=== PATIENT | male | born 1985 | race Caucasian/White ===

== ENCOUNTER 2016-03-31 11:10 | Emergency (ER) | payer OTHER ==
[2016-03-31 11:19] VITALS: RESP 18
[2016-03-31] MEDS ORDERED: SODIUM CHLORIDE 0.9% 1,000 ML IV STA (11:25)
[2016-03-31 11:59] LABS: Basophils % (A) 1 %; CH 30.1; CHCM 34.7; Eosinophils # (A) 0.2 k/uL (0-0.7); Eosinophils % (A) 3 %; HCT 44.9 % (39.0-53.0); HDW 2.62; HGB 15.3 gm/dL (13.0-17.5); Luc # (Auto) 0.08; Luc % (Auto) 1; Lymphocytes # (A) 2.7 k/uL (1.0-4.8); Lymphocytes % (A) 34 %; MCH 29.6 pg (25.0-35.0); MCV 87.1 fL (80.0-100.0); Mean Platelet Volume 7.6; Monocytes # (A) 0.3 k/uL (0-1.0); Monocytes % (A) 4 %; Neutrophils # (A) 4.6 k/uL (1.3-7.7); Neutrophils % (A) 58 %; RBC 5.16 m/uL (4.30-5.90); RDW 12.3 % (11.5-15.5); WBC 7.9 k/uL (3.8-10.6); WBC (Perox) 8.22
--- NOTE | 2016-03-31 12:00 | ED ---
Abdominal Pain HPI - General Chief Complaint: Abdominal Pain Stated Complaint: ABDOMINAL PAIN RT SIDE, VERY TIRED Time Seen by Provider: 03/31/16 11:25 Source: patient, RN notes reviewed Mode of arrival: ambulatory Limitations: no limitations - History of Present Illness Initial Comments: 30-year-old male presents emergency Department chief complaints of fatigue, abdominal pain. Patient states he has hepatitis C is concerned that he may be having a flareup. Patient states he has been admitted in the past for jaundice , elevated liver enzymes. Patient states this was a few years ago states that he was admitted for one week and discharge. He has not seat treatment after. He was told by the disposal plant operator that they would recommend that he waited one year. Patient states that now too. Patient denies any dysuria hematuria. Denies any history of mono. Denies any chest pain or shortness breath. Patient states that he noticed that he cannot smoke a cigarette without getting sick. Patient offers no other complaints.. - Related Data Home Medications Medication Instructions Recorded Confirmed No Known Home Medications [No 03/31/16 03/31/16 Known Home Medications] Allergies Allergy/AdvReac Type Severity Reaction Status Date / Time acetaminophen [From Tylenol] AdvReac "does not Verified 03/31/16 11:25 take" Review of Systems ROS Statement: Those systems with pertinent positive or pertinent negative responses have been documented in the HPI. ROS Other: All systems not noted in ROS Statement are negative. Past Medical History Past Medical History: Liver Disease, Musculoskeletal Disorder Additional Past Medical History / Comment(s): hepatitis c. chronic back pain with ruptured disc, cutting in the past History of Any Multi-Drug Resistant Organisms: None Reported Past Surgical History: No Surgical Hx Reported Additional Past Surgical History / Comment(s): Colonoscopy/EGD Past Anesthesia/Blood Transfusion Reactions: No Reported Reaction Past Psychological History: ADD/ADHD Smoking Status: Current every day smoker Past Alcohol Use History: None Reported Additional Past Alcohol Use History / Comment(s): Patient is a smoker of 10-15 cigarettes per day for 7 years. He smokes one joint of marijuana daily and he has a medical marijuana card. He denies any street drug or IV drug use. He is worked as a heavy equipment mechanic in the past. He is trying to get disability papers signed by Dr. Turner. Past Drug Use History: None Reported - Past Family History Father Additional Family Medical History / Comment(s): Father is alive at age 62 with history of Crohn's. Mother Additional Family Medical History / Comment(s): Mother is alive at age 54 with history of fibromyalgia and rheumatoid arthritis. Patient has 2 brothers that are currently living in [place] and 2 sisters. He has 3 children ages 7 year daughter, 4-year-old son, son. General Exam Limitations: no limitations General appearance: alert, in no apparent distress Neck exam: Present: normal inspection, full ROM. Absent: tenderness, meningismus, lymphadenopathy Respiratory exam: Present: normal lung sounds bilaterally. Absent: respiratory distress, wheezes, rales, rhonchi, stridor Cardiovascular Exam: Present: regular rate, normal rhythm, normal heart sounds. Absent: systolic murmur, diastolic murmur, rubs, gallop, clicks GI/Abdominal exam: Present: soft, tenderness (Moderate right upper quadrant tenderness), normal bowel sounds. Absent: distended, guarding, rebound, rigid Back exam: Absent: CVA tenderness (R), CVA tenderness (L) Psychiatric exam: Present: normal affect, normal mood Skin exam: Present: warm, dry, intact, normal color. Absent: rash Course Vital Signs 03/31/16 11:15 Temperature 98.7 F Pulse Rate 67 Respiratory 18 Rate Blood Pressure 123/61 O2 Sat by Pulse 100 Oximetry Medical Decision Making - Medical Decision Making 30-year-old male present emergency department for fatigue just generalized not feeling well. Patient's lab work essentially unremarkable. Patient is concerned about his hepatitis C. I did strongly advise him that he needs seek treatment in which she states she'll follow-up with Dr. Linares. Patient will be discharged advised to quit smoking counseled in detail greater than 5 minutes for smoking sensation. Patient will take multivitamin return if symptoms worsen. - Lab Data Result diagrams: 03/31/16 11:47 03/31/16 11:47 Lab Results 03/31/16 03/31/16 03/31/16 Range/Units 11:47 11:47 11:47 WBC 7.9 (3.8-10.6) k/uL RBC 5.16 (4.30-5.90) m/uL Hgb 15.3 (13.0-17.5) gm/dL Hct 44.9 (39.0-53.0) % MCV 87.1 (80.0-100.0) fL MCH 29.6 (25.0-35.0) pg MCHC 34.0 (31.0-37.0) g/dL RDW 12.3 (11.5-15.5) % Plt Count 146 L (150-450) k/uL Neutrophils % 58 % Lymphocytes % 34 % Monocytes % 4 % Eosinophils % 3 % Basophils % 1 % Neutrophils # 4.6 (1.3-7.7) k/uL Lymphocytes # 2.7 (1.0-4.8) k/uL Monocytes # 0.3 (0-1.0) k/uL Eosinophils # 0.2 (0-0.7) k/uL Basophils # 0.0 (0-0.2) k/uL Sodium 147 H (137-145) mmol/L Potassium 4.3 (3.5-5.1) mmol/L Chloride 108 H (98-107) mmol/L Carbon Dioxide 27 (22-30) mmol/L Anion Gap 12 mmol/L BUN 14 (9-20) mg/dL Creatinine 0.73 (0.66-1.25) mg/dL Est GFR (MDRD) Af Amer >60 (>60 ml/min/1.73 sqM) Est GFR (MDRD) Non-Af >60 (>60 ml/min/1.73 sqM) Glucose 89 (74-99) mg/dL Calcium 9.6 (8.4-10.2) mg/dL Total Bilirubin 1.3 (0.2-1.3) mg/dL AST 24 (17-59) U/L ALT 38 (21-72) U/L Alkaline Phosphatase 74 (38-126) U/L Ammonia (<30) umol/L Total Protein 7.8 (6.3-8.2) g/dL Albumin 4.7 (3.5-5.0) g/dL Amylase 78 (30-110) U/L Lipase 65 (23-300) U/L Heterophile Antibody Negative (Negative) 03/31/16 Range/Units 11:47 WBC (3.8-10.6) k/uL RBC (4.30-5.90) m/uL Hgb (13.0-17.5) gm/dL Hct (39.0-53.0) % MCV (80.0-100.0) fL MCH (25.0-35.0) pg MCHC (31.0-37.0) g/dL RDW (11.5-15.5) % Plt Count (150-450) k/uL Neutrophils % % Lymphocytes % % Monocytes % % Eosinophils % % Basophils % % Neutrophils # (1.3-7.7) k/uL Lymphocytes # (1.0-4.8) k/uL Monocytes # (0-1.0) k/uL Eosinophils # (0-0.7) k/uL Basophils # (0-0.2) k/uL Sodium (137-145) mmol/L Potassium (3.5-5.1) mmol/L Chloride (98-107) mmol/L Carbon Dioxide (22-30) mmol/L Anion Gap mmol/L BUN (9-20) mg/dL Creatinine (0.66-1.25) mg/dL Est GFR (MDRD) Af Amer (>60 ml/min/1.73 sqM) Est GFR (MDRD) Non-Af (>60 ml/min/1.73 sqM) Glucose (74-99) mg/dL Calcium (8.4-10.2) mg/dL Total Bilirubin (0.2-1.3) mg/dL AST (17-59) U/L ALT (21-72) U/L Alkaline Phosphatase (38-126) U/L Ammonia 19 (<30) umol/L Total Protein (6.3-8.2) g/dL Albumin (3.5-5.0) g/dL Amylase (30-110) U/L Lipase (23-300) U/L Heterophile Antibody (Negative) Disposition Clinical Impression: Fatigue, Abdominal pain Disposition: HOME SELF-CARE Condition: Stable Instructions: Fatigue (ED) Additional Instructions: Please return to the Emergency Department if symptoms worsen or any other concerns. Time of Disposition: 13:13
[2016-03-31 12:14] LABS: ALT 38 U/L (21-72); AST 24 U/L (17-59); Alkaline Phosphatase 74 U/L (38-126); Amylase 78 U/L (30-110); Anion Gap 12 mmol/L; Blood Urea Nitrogen 14 mg/dL (9-20); Calcium 9.6 mg/dL (8.4-10.2); Carbon Dioxide 27 mmol/L (22-30); Chloride 108 mmol/L (98-107); Glucose 89 mg/dL (74-99); Non-African American GFR(MDRD) >60 (>60 ml/min/1.73 sqM); Potassium 4.3 mmol/L (3.5-5.1); Sodium 147 mmol/L (137-145); Total Bilirubin 1.3 mg/dL (0.2-1.3); Total Protein 7.8 g/dL (6.3-8.2)
--- NOTE | 2016-03-31 12:22 | XR ---
EXAMINATION TYPE: XR KUB DATE OF EXAM: 03/31/2016 12:18 PM COMPARISON: NONE HISTORY: Pain TECHNIQUE: Single supine KUB image of the abdomen is obtained FINDINGS: Small bowel demonstrates no evidence for dilatation or air fluid levels. Gas and fecal material is seen in non-distended colon. No convincing evidence for pneumoperitoneum. No unusual calcifications. The lung bases are clear. The osseous structures are intact. IMPRESSION: 1. Overall nonobstructive bowel gas pattern.
[2016-03-31 13:25] VITALS: BP 113/51; PULSE 52; TEMP 98.9
[2016-03-31 13:26] LABS: Appearance,Urine Clear (Clear); Bilirubin,Urine Negative (Negative); Glucose,Urine (UA) Negative (Negative); Ketones,Urine Negative (Negative); Leukocyte Esterase,Urine Negative (Negative); Nitrite,Urine Negative (Negative); Protein,Urine Trace (Negative); Specific Gravity,Urine 1.021 (1.001-1.035); UA Billing (MACRO vs. MICRO) CHEM; Urobilinogen,Urine <2.0 mg/dL (<2.0)
== END 2016-03-31 13:25 | disposition home or self-care (01) ==
LOC: EC 11:10
DX: R10.11 Right upper quadrant pain (principal); R53.83 Other fatigue; F17.210 Nicotine dependence, cigarettes, uncomplicated; Z87.19 Personal history of other diseases of the digestive system; Z86.19 Personal history of other infectious and parasitic diseases; Z83.79 Family history of other diseases of the digestive system; Z88.6 Allergy status to analgesic agent
CPT/HCPCS: 36415; 74000; 80053; 81003; 82140; 82150; 83690; 85025; 86308; 96360; 99284

== ENCOUNTER 2016-08-05 14:48 | Emergency (ER) | payer OTHER ==
[2016-08-05 14:55] VITALS: BP 113/70; PULSE 62; RESP 16; TEMP 97.6
--- NOTE | 2016-08-05 15:45 | ED ---
General Adult HPI - General Chief complaint: Abdominal Pain Stated complaint: Abd Pain Time Seen by Provider: 08/05/16 15:24 Source: patient, RN notes reviewed, old records reviewed Mode of arrival: ambulatory Limitations: no limitations - History of Present Illness Initial comments: Chief complaint and history of present illness a 31-year-old male to complaint of right upper quadrant pain. Patient reports he had a friend moving a heavy stone restart have discomfort that Progressively worse. Patient reports she's had this before. - Related Data Home Medications Medication Instructions Recorded Confirmed No Known Home Medications [No 03/31/16 08/05/16 Known Home Medications] Allergies Allergy/AdvReac Type Severity Reaction Status Date / Time acetaminophen [From Tylenol] AdvReac "does not Verified 08/05/16 14:55 take" Review of Systems ROS Statement: Those systems with pertinent positive or pertinent negative responses have been documented in the HPI. reviewed his review of systems. Patient's denying any headache or visual acuity changes no chest pain with deep breathing does cause discomfort to the right upper quadrant. States the pains under the right rib cage. Is able to push on his ribs without much discomfort. Pain does not radiate to the back at this time though he has had disc disease and L2-L3 in the past. No neuro deficits all systems are reviewed Past medical problems significant for alcohol abuse IV drug abuse mental health issues. Hepatitis C positive. Patient reports twice his turn icteric first time he did not seek any medical advice. He did have an appointment to follow- up with otr company truck driver but missed the appointment. Strongly encouraged to follow up as soon as possible. Other medical problems include ADHD ADD. ALLERGIES to acetaminophen which he does not take because of the liver problems. ROS Other: All systems not noted in ROS Statement are negative. Past Medical History Past Medical History: Liver Disease, Musculoskeletal Disorder Additional Past Medical History / Comment(s): hepatitis c. chronic back pain with ruptured disc, cutting in the past History of Any Multi-Drug Resistant Organisms: None Reported Past Surgical History: No Surgical Hx Reported Additional Past Surgical History / Comment(s): Colonoscopy/EGD Past Anesthesia/Blood Transfusion Reactions: No Reported Reaction Past Psychological History: ADD/ADHD Smoking Status: Current every day smoker Past Alcohol Use History: None Reported Additional Past Alcohol Use History / Comment(s): Patient is a smoker of 10-15 cigarettes per day for 7 years. He smokes one joint of marijuana daily and he has a medical marijuana card. He denies any street drug or IV drug use. He is worked as a auto motor mechanic in the past. He is trying to get disability papers signed by Dr. Turner. Past Drug Use History: None Reported - Past Family History Father Additional Family Medical History / Comment(s): Father is alive at age 62 with history of Crohn's. Mother Additional Family Medical History / Comment(s): Mother is alive at age 54 with history of fibromyalgia and rheumatoid arthritis. Patient has 2 brothers that are currently living in [place] and 2 sisters. He has 3 children ages 7 year daughter, 4-year-old son, son. General Exam - General Exam Comments Initial Comments: General: The patient is awake and alert, complaining of pain up under the right rib cage. Vital signs temp 97.6 pulse 62 or 3 rate 16 pulse ox 90% room air blood pressure 113/70. Eye: Pupils are equal, round and reactive to light, extra-ocular movements are intact ; there is normal conjunctiva bilaterally. No signs of icterus. Ears, nose, mouth and throat: There are moist mucous membranes and no oral lesions. Neck: The neck is supple, there is no tenderness , no meningeal irritation, no anterior cervical lymphadenopathy. Cardiovascular: There is a regular rate and rhythm. No murmur, rub or gallop is appreciated. Respiratory: Lungs are clear to auscultation, respirations are non-labored, breath sounds are equal. No wheezes, stridor, rales, or rhonchi. Gastrointestinal: palpation of the rib cage anteriorly in the right side some cause discomfort. Palpation over the liver edge nontender at this time the patient reports she has spasms of pain in the area. Normal active bowel sounds. Back: There is no tenderness to palpation in the midline. There is no obvious deformity. No rashes noted. Musculoskeletal: Normal ROM, no tenderness, There is no pedal edema. There is no calf tenderness or swelling. Neurological: no complaint of or any evidence of a neuro deficits. Skin: Skin is warm and dry and no rashes or lesions are noted. Psychiatric: history depression. Limitations: no limitations Course Vital Signs 08/05/16 14:51 Temperature 97.6 F Pulse Rate 62 Respiratory 16 Rate Blood Pressure 113/70 O2 Sat by Pulse 98 Oximetry Medical Decision Making - Medical Decision Making Patient left before being fully evaluated her lab work was done. He just walked out. No explanation given. Disposition Clinical Impression: Left against medical advice Disposition: Left Against Medical Advice Condition: Undetermined Referrals: Yaneth Turner MD [Primary Care Provider] - 1-2 days Time of Disposition: 17:09
== END 2016-08-05 16:45 | disposition left against medical advice (07) ==
LOC: EC 14:48
DX: R10.11 Right upper quadrant pain (principal); F17.210 Nicotine dependence, cigarettes, uncomplicated; Z88.6 Allergy status to analgesic agent
CPT/HCPCS: 99284

== ENCOUNTER → 2016-10-02 | Outpatient (CLI) | payer OTHER ==
--- NOTE | 2016-10-02 15:39 | XR ---
Limited cervical spine HISTORY: Neck pain 3 views of the cervical spine No comparisons Cervical vertebral bodies show preserved height, alignment, and bone mineralization. Disc spaces and prevertebral soft tissues are normal. Odontoid view is limited. IMPRESSION: No acute abnormality.
--- NOTE | 2016-10-02 15:42 | XR ---
Lumbosacral spine HISTORY: Pain, R 52 6 views of the lumbosacral spine Correlation to prior exam 09/05/2012 There is a spinal curvature, convex left centered at approximately L3. L5 is sacralized. Loss of disc height L4-5 and L5-S1, there is associated spondylosis. Lumbar vertebral bodies show preserved heigh t and bone mineralization. IMPRESSION: Spinal curvature. Degenerative disc disease. Stable exam.
--- NOTE | 2016-10-02 15:45 | XR ---
Thoracic spine HISTORY: Chronic back 2 views of the thoracic spine Correlation to lumbar spine same date Thoracic vertebral bodies show preserved height and bone mineralization. There is a spinal curvature present, compensatory curve noted in the lower thoracic spine. There is multilevel spondylosis. Disc spaces are maintained. IMPRESSION: Spinal curvature, degenerative disc disease.
== END ==
LOC: RADXRMAIN 11:14
PROVIDERS: ATTEND Internal Medicine
DX: M51.37 Other intervertebral disc degeneration, lumbosacral region (principal); M43.9 Deforming dorsopathy, unspecified; M51.34 Other intervertebral disc degeneration, thoracic region; R52 Pain, unspecified
CPT/HCPCS: 72040; 72070; 72110

== ENCOUNTER 2017-01-26 15:16 | Emergency (ER) | payer OTHER ==
--- NOTE | 2017-01-26 16:39 | ED ---
General Adult HPI - General Chief complaint: Fall Stated complaint: abdominal & back pain Time Seen by Provider: 01/26/17 16:06 Source: patient Mode of arrival: ambulatory Limitations: no limitations - History of Present Illness Initial comments: Patient is a 31-year-old male who presents with a chief complaint of right- sided back and hip pain. The patient states that he had an injury that happened on the . He was trying to walk through a pile of leaves and did not see that there was a chunk of ice and dirt underneath. He states that he tried to kick the leaves and his foot came to an abrupt stop and he felt a pop in his right sided lower back. Patient states that his pain is a throbbing type pain. It is aggravated by flexing and extending at the hip. It is alleviated by rest. Timing is constant. Patient states that he does have a history of similar back problems. The patient states that he is an avid runner and he is unable to run currently. Patient denies any caudal symptoms. He denies any bowel or bladder incontinence. The patient is able to ambulate without assistance - Related Data Previous Rx's Medication Instructions Recorded Ibuprofen [Motrin] 800 mg PO Q8HR #20 tab 01/26/17 Lidocaine 5% Patch [Lidoderm 5% 1 patch TOPICAL DAILY #20 patch 01/26/17 Patch] Allergies Allergy/AdvReac Type Severity Reaction Status Date / Time acetaminophen [From Tylenol] AdvReac "does not Verified 01/26/17 16:08 take" Review of Systems ROS Statement: Those systems with pertinent positive or pertinent negative responses have been documented in the HPI. ROS Other: All systems not noted in ROS Statement are negative. Constitutional: Denies: fever Eyes: Denies: vision change ENT: Denies: ear pain, throat pain Respiratory: Denies: cough Cardiovascular: Denies: chest pain Endocrine: Denies: fatigue Gastrointestinal: Denies: abdominal pain, nausea, vomiting Genitourinary: Denies: dysuria Musculoskeletal: Reports: back pain Skin: Denies: rash, lesions Neurological: Denies: headache Past Medical History Past Medical History: Liver Disease, Musculoskeletal Disorder Additional Past Medical History / Comment(s): hepatitis c. chronic back pain with ruptured disc, cutting in the past History of Any Multi-Drug Resistant Organisms: None Reported Past Surgical History: No Surgical Hx Reported Additional Past Surgical History / Comment(s): Colonoscopy/EGD Past Anesthesia/Blood Transfusion Reactions: No Reported Reaction Past Psychological History: ADD/ADHD Smoking Status: Current every day smoker Past Alcohol Use History: None Reported Past Drug Use History: None Reported - Past Family History Father Additional Family Medical History / Comment(s): Father is alive at age 62 with history of Crohn's. Mother Additional Family Medical History / Comment(s): Mother is alive at age 54 with history of fibromyalgia and rheumatoid arthritis. Patient has 2 brothers that are currently living in [place] and 2 sisters. He has 3 children ages 7 year daughter, 4-year-old son, son. General Exam Limitations: no limitations General appearance: alert, in no apparent distress Head exam: Present: atraumatic, normocephalic Eye exam: Present: normal appearance ENT exam: Present: normal exam Neck exam: Present: normal inspection Respiratory exam: Present: normal lung sounds bilaterally Cardiovascular Exam: Present: regular rate, normal rhythm GI/Abdominal exam: Present: soft. Absent: distended, tenderness Rectal exam: Present: deferred Extremities exam: Present: other (Patient has pain in his back with extension of the right hip. Pain is improved with flexion) Back exam: Present: muscle spasm, paraspinal tenderness. Absent: vertebral tenderness Neurological exam: Present: alert, oriented X3, CN II-XII intact Psychiatric exam: Present: normal affect, normal mood Skin exam: Present: warm, dry, intact Course Vital Signs 01/26/17 15:29 Temperature 98.4 F Pulse Rate 51 L Respiratory 16 Rate Blood Pressure 113/59 O2 Sat by Pulse 98 Oximetry Medical Decision Making - Medical Decision Making Patient presents with a chief complaint of a back injury secondary to kicking a chunk of ice and subsequently falling. Patient does not have any caudal symptoms present. He is able to ambulate on his own. The patient will have an x-ray of the right hip and lumbar spine. Patient was offered pain medication though he declines at this time. X-ray evaluation of the pelvis, right hip, and lumbar spine show no acute fractures or malalignments. Patient was written a prescription for lidocaine patches, and Motrin 800. He is given a work note to be cleared by PCP. At this time, patient is stable for discharge Disposition Clinical Impression: Fall, Back pain Disposition: HOME SELF-CARE Condition: Good Instructions: Low Back Strain (ED) Prescriptions: Ibuprofen [Motrin] 800 mg PO Q8HR #20 tab Lidocaine 5% Patch [Lidoderm 5% Patch] 1 patch TOPICAL DAILY #20 patch Referrals: Yaneth Turner MD [Primary Care Provider] - 1-2 days
--- NOTE | 2017-01-26 16:54 | XR ---
EXAMINATION TYPE: XR Hip RT and AP Pelvis DATE OF EXAM: 01/26/2017 COMPARISON: NONE HISTORY: Right hip and back pain after fall 3 days ago TECHNIQUE: A single AP view of the pelvis is obtained. Two views of the right hip are obtained. FINDINGS: There is no acute fracture/dislocation evident in the pelvis. The hip and sacroiliac join ts appear symmetric and unremarkable. The overlying soft tissue appears unremarkable. Probable phleb oliths are located within the low pelvis inferior to the ischial spines. Two views of right hip show no acute fracture or dislocation. No focal lytic or sclerotic lesion see n in the proximal right femur. The overlying soft tissue is unremarkable. IMPRESSION: There is no acute fracture or dislocation in the pelvis or right hip.
--- NOTE | 2017-01-26 16:58 | XR ---
EXAMINATION TYPE: XR lumbar spine 2 or 3V DATE OF EXAM: 01/26/2017 CLINICAL HISTORY: Low back pain after a fall TECHNIQUE: Frontal, lateral, and oblique images of the lumbar spine are obtained. COMPARISON: None FINDINGS: There is sacralization of the L5 vertebral body. The lumbar spine shows satisfactory align ment without evidence of acute fracture or dislocation. Vertebral body heights and disk space heights are within normal limits. Mild degenerative change is seen at the L4-L5 . There is mild downsloping of the T12 superior endplate, likely positional although correlation with point tenderness is recomme nded to exclude subtle compression deformity. The overlying soft tissue appears unremarkable. IMPRESSION: 1. Mild downsloping of the T12 superior endplate, likely positional. Correlation with point tendernes s is recommended to exclude subtle compression deformity. 2. No malalignment of the lumbar spine.
[2017-01-26 17:47] VITALS: BP 170/70; PULSE 78; RESP 18; TEMP 97.8
== END 2017-01-26 17:46 | disposition home or self-care (01) ==
LOC: EC 15:16
DX: M62.830 Muscle spasm of back (principal); M25.551 Pain in right hip; F17.200 Nicotine dependence, unspecified, uncomplicated; Z88.8 Allergy status to other drugs, medicaments and biological substances; Z82.61 Family history of arthritis; Z82.69 Family history of other diseases of the musculoskeletal system and connective tissue; W18.09XA Striking against other object with subsequent fall, initial encounter; Y93.89 Activity, other specified; Y92.69 Other specified industrial and construction area as the place of occurrence of the external cause; Y99.0 Civilian activity done for income or pay
CPT/HCPCS: 72100; 73502; 99283

== ENCOUNTER 2017-08-12 00:26 | Emergency (ER) | payer OTHER ==
[2017-08-12] MEDS ORDERED: BENZONATATE 100 MG CAP PO STA (00:53)
[2017-08-12] MEDS ORDERED: predniSONE 50 MG TAB PO STA (00:53)
--- NOTE | 2017-08-12 02:00 | XR ---
EXAM: XR Chest, 2 Views CLINICAL HISTORY: ITS.REASON XR Reason: Pain TECHNIQUE: Frontal and lateral views of the chest. COMPARISON: No relevant prior studies available. FINDINGS: Lungs: Unremarkable. No consolidation. Pleural space: Unremarkable. No pneumothorax. Heart: Unremarkable. No cardiomegaly. Mediastinum: Unremarkable. Bones/joints: Unremarkable. IMPRESSION: Normal chest x-rays.
--- NOTE | 2017-08-12 02:37 | ED ---
URI HPI - General Chief Complaint: Upper Respiratory Infection Stated Complaint: cough, chest discomfort Time Seen by Provider: 08/12/17 00:48 Source: patient Mode of arrival: ambulatory Limitations: no limitations - History of Present Illness Initial Comments: 32-year-old male patient presents to the emergency department today for complaints of cough. Patient states that he developed upper respiratory symptoms about a week ago. States that the symptoms included sore throat, nasal congestion, and cough. States that the nasal congestion and sore throat have resolved with the cough has remained. States he is coughing up "[place] green " sputum. Patient states that when he coughs his chest does hurt. He denies any pain in the chest with deep breathing or at rest. Denies any fevers or chills. Denies any shortness of breath. Patient states he does smoke cigarettes. Patient states he did take Mucinex prior to coming in, states that has not helped. Patient denies any recent rash, abdominal pain, nausea, vomiting , diarrhea, constipation, back pain, numbness, tingling, dizziness, weakness, hematuria, dysuria, urinary urgency, urinary frequency, headache, visual changes , or any other complaints. - Related Data Previous Rx's Medication Instructions Recorded Promethazine 6.25MG/5Ml [Phenergan 5 ml PO Q6H PRN #100 ml 08/12/17 Syrup] predniSONE 50 mg PO DAILY #5 tablet 08/12/17 Allergies Allergy/AdvReac Type Severity Reaction Status Date / Time acetaminophen [From Tylenol] AdvReac "does not Verified 01/26/17 16:08 take" Review of Systems ROS Statement: Those systems with pertinent positive or pertinent negative responses have been documented in the HPI. ROS Other: All systems not noted in ROS Statement are negative. Past Medical History Past Medical History: Liver Disease, Musculoskeletal Disorder Additional Past Medical History / Comment(s): hepatitis c. chronic back pain with ruptured disc, cutting in the past History of Any Multi-Drug Resistant Organisms: None Reported Past Surgical History: No Surgical Hx Reported Additional Past Surgical History / Comment(s): Colonoscopy/EGD Past Anesthesia/Blood Transfusion Reactions: No Reported Reaction Past Psychological History: ADD/ADHD Smoking Status: Current every day smoker Past Alcohol Use History: None Reported Past Drug Use History: None Reported - Past Family History Father Additional Family Medical History / Comment(s): Father is alive at age 62 with history of Crohn's. Mother Additional Family Medical History / Comment(s): Mother is alive at age 54 with history of fibromyalgia and rheumatoid arthritis. Patient has 2 brothers that are currently living in [place] and 2 sisters. He has 3 children ages 7 year daughter, 4-year-old son, son. General Exam Limitations: no limitations General appearance: alert, in no apparent distress, other (This is a well- developed, well-nourished adult male patient in no acute distress. Vital signs upon presentation are temperature 98.2F, pulse 64, respirations 20, blood pressure 112/53, pulse ox 100% on room air.) Eye exam: Present: normal appearance, PERRL, EOMI. Absent: scleral icterus, conjunctival injection, periorbital swelling ENT exam: Present: normal exam, normal oropharynx, mucous membranes moist, TM's normal bilaterally Neck exam: Present: normal inspection. Absent: tenderness, meningismus, lymphadenopathy Respiratory exam: Present: normal lung sounds bilaterally, other (Patient is in no respiratory distress. Lungs are clear to auscultation with good air movement. Congested cough noted throughout exam.). Absent: respiratory distress, wheezes, rales, rhonchi, stridor, chest wall tenderness Cardiovascular Exam: Present: regular rate, normal rhythm, normal heart sounds. Absent: systolic murmur, diastolic murmur, rubs, gallop, clicks GI/Abdominal exam: Present: soft, normal bowel sounds. Absent: distended, tenderness, guarding, rebound, rigid Neurological exam: Present: alert, oriented X3, CN II-XII intact Psychiatric exam: Present: normal affect, normal mood Skin exam: Present: warm, dry, intact, normal color. Absent: rash Course Vital Signs 08/12/17 08/12/17 00:34 02:58 Temperature 98.0 F 97.8 F Pulse Rate 64 52 L Respiratory 20 18 Rate Blood Pressure 112/53 108/52 O2 Sat by Pulse 100 97 Oximetry Medical Decision Making - Medical Decision Making 32-year-old male patient presented to the emergency department today for evaluation of cough. Physical examination was unremarkable. Lungs are clear to auscultation with good air movement. Chest x-ray showed no acute cardiopulmonary process. Patient did have a viral upper respiratory infection, it is felt that he has progressed to acute bronchitis. Patient be treated with Phenergan syrup and prednisone. He is instructed to stop smoking. He is instructed to follow-up with his primary care physician for recheck in 1-2 days. Return parameters discussed in detail. He verbalizes understanding and agrees with this plan. - Radiology Data Radiology results: report reviewed, image reviewed Two-view x-ray of the chest was obtained. Report was reviewed in its entirety. Impression by Dr. Presley shows normal chest x-rays. Disposition Clinical Impression: Viral upper respiratory illness, Acute bronchitis Disposition: HOME SELF-CARE Condition: Good Instructions: Upper Respiratory Infection (ED), Acute Bronchitis (ED) Additional Instructions: Complete medications as directed. Follow-up with your primary care physician for recheck in 1-2 days. Return here immediately for any new, worsening, or concerning symptoms. Prescriptions: predniSONE 50 mg PO DAILY #5 tablet Promethazine 6.25MG/5Ml [Phenergan Syrup] 5 ml PO Q6H PRN #100 ml PRN Reason: Cough Is patient prescribed a controlled substance at d/c from ED?: No Referrals: None,Stated [Primary Care Provider] - 1-2 days Time of Disposition: 02:36
[2017-08-12 03:01] VITALS: BP 108/52; PULSE 52; RESP 18; TEMP 97.8
== END 2017-08-12 03:00 | disposition home or self-care (01) ==
LOC: EC 00:26
DX: J20.9 Acute bronchitis, unspecified (principal); J06.9 Acute upper respiratory infection, unspecified; F17.210 Nicotine dependence, cigarettes, uncomplicated; Z88.6 Allergy status to analgesic agent
CPT/HCPCS: 71046; 99283; J7512

== ENCOUNTER 2017-08-16 21:51 | Emergency (ER) | payer OTHER ==
[2017-08-16 22:10] VITALS: TEMP 98.4
[2017-08-16] MEDS ORDERED: IPRATROPIUM-ALBUTEROL 3 ML NEB INHALATION STA (22:54)
--- NOTE | 2017-08-17 00:06 | ED ---
General Adult HPI - General Chief complaint: Upper Respiratory Infection Stated complaint: SOB/Cough Time Seen by Provider: 08/16/17 22:12 Source: patient Mode of arrival: ambulatory Limitations: no limitations - History of Present Illness Initial comments: 32-year-old male patient presented to the emergency department today with complaints of continued cough. Patient states that he has been sick for the last couple of weeks with a harsh cough and some mild shortness of breath. Patient states it all started with upper respiratory symptoms including sore throat and nasal congestion. Patient states that he was seen here a few days ago was given steroids and a cough medication. Patient states soon as a cough medication wore off his cough and return. States the steroids are not helping. Denies any sputum production or hemoptysis. Denies any chest pain. Denies any fevers or chills with this. Patient states he is a smoker rate has decreased a lot in the last couple of weeks. Denies any history of lung conditions. Patient denies any recent rash, abdominal pain, nausea, vomiting, diarrhea, constipation, back pain, numbness, tingling, dizziness, weakness, hematuria, dysuria, urinary urgency, urinary frequency, headache, visual changes , or any other complaints. - Related Data Previous Rx's Medication Instructions Recorded Albuterol Sulfate [Proair Hfa] 1 - 2 puff INHALATION Q6HR PRN #1 08/17/17 inhaler Azithromycin [Zithromax Z-pack] 0 mg PO DIRECTED #6 tab 08/17/17 Promethazine 6.25MG/5Ml [Phenergan 5 ml PO Q6H #100 ml 08/17/17 Syrup] Allergies Allergy/AdvReac Type Severity Reaction Status Date / Time acetaminophen [From Tylenol] AdvReac "does not Verified 08/16/17 22:30 take" Review of Systems ROS Statement: Those systems with pertinent positive or pertinent negative responses have been documented in the HPI. ROS Other: All systems not noted in ROS Statement are negative. Past Medical History Past Medical History: Liver Disease, Musculoskeletal Disorder Additional Past Medical History / Comment(s): hepatitis c. chronic back pain with ruptured disc, cutting in the past History of Any Multi-Drug Resistant Organisms: None Reported Past Surgical History: No Surgical Hx Reported Additional Past Surgical History / Comment(s): Colonoscopy/EGD Past Anesthesia/Blood Transfusion Reactions: No Reported Reaction Past Psychological History: ADD/ADHD Smoking Status: Current every day smoker Past Alcohol Use History: None Reported Past Drug Use History: None Reported - Past Family History Father Additional Family Medical History / Comment(s): Father is alive at age 62 with history of Crohn's. Mother Additional Family Medical History / Comment(s): Mother is alive at age 54 with history of fibromyalgia and rheumatoid arthritis. Patient has 2 brothers that are currently living in [place] and 2 sisters. He has 3 children ages 7 year daughter, 4-year-old son, son. General Exam Limitations: no limitations General appearance: alert, in no apparent distress, other (This is a well- developed, well-nourished adult male patient in no acute distress. Vital signs upon presentation are temperature 98.4F, pulse 64, respirations 20, blood pressure 112/63, pulse ox 99% on room air.) Eye exam: Present: normal appearance, PERRL, EOMI. Absent: scleral icterus, conjunctival injection, periorbital swelling ENT exam: Present: normal exam, normal oropharynx, mucous membranes moist Respiratory exam: Present: normal lung sounds bilaterally, other (Lungs sounds are clear to auscultation with good air movement. Respirations are even and unlabored.). Absent: respiratory distress, wheezes, rales, rhonchi, stridor Cardiovascular Exam: Present: regular rate, normal rhythm, normal heart sounds. Absent: systolic murmur, diastolic murmur, rubs, gallop, clicks GI/Abdominal exam: Present: soft, normal bowel sounds. Absent: distended, tenderness, guarding, rebound, rigid Neurological exam: Present: alert, oriented X3, CN II-XII intact Psychiatric exam: Present: normal affect, normal mood Skin exam: Present: warm, dry, intact, normal color. Absent: rash Course Vital Signs 08/16/17 08/16/17 08/16/17 22:06 22:28 23:19 Temperature 98.4 F Pulse Rate 64 56 L Respiratory 20 20 Rate Blood Pressure 112/63 O2 Sat by Pulse 99 Oximetry 08/16/17 08/17/17 08/17/17 23:30 00:10 01:15 Temperature Pulse Rate 64 61 Respiratory 18 16 Rate Blood Pressure 141/63 O2 Sat by Pulse 99 Oximetry Medical Decision Making - Medical Decision Making 32-year-old male patient presented to the emergency department today for complaints of increased cough. Physical examination is unremarkable. Lungs are clear to auscultation with good air movement. Patient is breathing without difficulty. Full sentences. Chest x-ray showed no acute cardio pulmonary process. As this is patient's second visit cough does not seem to be improved despite steroid use we will start him on azithromycin and a Pro Air inhaler. He 'll be given a prescription for Phenergan for cough suppression. He is instructed follow up his primary care physician for recheck in 1-2 days. Smoking cessation discussed. Return parameters discussed in detail. He verbalizes understanding and agreement with this plan. - Radiology Data Radiology results: report reviewed, image reviewed Two-view x-ray of the chest is obtained. Heart media's enema normal. Lungs are clear. Diaphragm is normal. Bony thorax appears normal. Impression by Dr. Jacobson shows multiple chest with no change. Disposition Clinical Impression: Acute bronchitis Disposition: HOME SELF-CARE Condition: Good Instructions: Acute Bronchitis (ED) Additional Instructions: Take medications as directed. Follow-up through primary care physician for recheck in 1-2 days. Return here immediately for any new, worsening, or concerning symptoms. Prescriptions: Albuterol Sulfate [Proair Hfa] 1 - 2 puff INHALATION Q6HR PRN #1 inhaler PRN Reason: Shortness Of Breath Azithromycin [Zithromax Z-pack] 0 mg PO DIRECTED #6 tab Promethazine 6.25MG/5Ml [Phenergan Syrup] 5 ml PO Q6H #100 ml Is patient prescribed a controlled substance at d/c from ED?: No Referrals: None,Stated [Primary Care Provider] - 1-2 days Time of Disposition: 01:06
--- NOTE | 2017-08-17 00:44 | XR ---
EXAMINATION TYPE: XR chest 2V DATE OF EXAM: 08/17/2017 COMPARISON: 08/12/2017 HISTORY: Cough TECHNIQUE: Frontal and lateral views of the chest are obtained. FINDINGS: Heart and mediastinum are normal. Lungs are clear. Diaphragm is normal. Bony thorax appear s normal. IMPRESSION: Normal chest. No change.
[2017-08-17] MEDS ORDERED: AZITHROMYCIN 500 MG TAB PO STA (01:06)
[2017-08-17 01:16] VITALS: BP 141/63; PULSE 61; RESP 16
== END 2017-08-17 01:16 | disposition home or self-care (01) ==
LOC: EC 21:51
DX: J20.9 Acute bronchitis, unspecified (principal); F17.200 Nicotine dependence, unspecified, uncomplicated; Z88.8 Allergy status to other drugs, medicaments and biological substances
CPT/HCPCS: 71046; 94640; 99283

== ENCOUNTER 2019-01-06 21:38 | Emergency (ER) | payer OTHER ==
[2019-01-06 21:50] VITALS: BP 112/68; PULSE 62; RESP 18; TEMP 98
[2019-01-06] MEDS ORDERED: AMOXIC-POT CLAV 875MG STARTER 2 EACH TABLET PO STA (22:03)
--- NOTE | 2019-01-06 22:05 | ED ---
[facility] HPI - General Chief Complaint: Upper Respiratory Infection Stated Complaint: Cough,Upper Resp Time Seen by Provider: 01/06/19 21:56 Source: patient, RN notes reviewed Mode of arrival: ambulatory Limitations: no limitations - History of Present Illness Initial Comments: 33-year-old male presents emergency Department with chief complaint of cough congestion last 5-6 days. Patient kids are being treated for upper extremity infection which are not improving on antibiotics. No fever today with states she's had on-and-off fevers. Patient has projectile cough and morning but states primarily has sinus congestion and sinus pressure. No current headache no dizziness - Related Data Previous Rx's Medication Instructions Recorded Albuterol Sulfate [Proair Hfa] 1 - 2 puff INHALATION Q6HR PRN #1 08/17/17 inhaler Azithromycin [Zithromax Z-pack] 0 mg PO DIRECTED #6 tab 08/17/17 Promethazine 6.25MG/5Ml [Phenergan 5 ml PO Q6H #100 ml 08/17/17 Syrup] Amoxicillin/Potassium Clav 1 tab PO Q12HR #20 tab 01/06/19 [Augmentin 875-125 Tablet] Allergies Allergy/AdvReac Type Severity Reaction Status Date / Time acetaminophen [From Tylenol] AdvReac "does not Verified 08/16/17 22:30 take" Review of Systems ROS Statement: Those systems with pertinent positive or pertinent negative responses have been documented in the HPI. ROS Other: All systems not noted in ROS Statement are negative. Past Medical History Past Medical History: Liver Disease, Musculoskeletal Disorder Additional Past Medical History / Comment(s): hepatitis c. chronic back pain with ruptured disc, cutting in the past History of Any Multi-Drug Resistant Organisms: None Reported Past Surgical History: No Surgical Hx Reported Additional Past Surgical History / Comment(s): Colonoscopy/EGD Past Anesthesia/Blood Transfusion Reactions: No Reported Reaction Past Psychological History: ADD/ADHD Smoking Status: Current every day smoker Past Alcohol Use History: None Reported Past Drug Use History: None Reported - Past Family History Father Additional Family Medical History / Comment(s): Father is alive at age 62 with history of Crohn's. Mother Additional Family Medical History / Comment(s): Mother is alive at age 54 with history of fibromyalgia and rheumatoid arthritis. Patient has 2 brothers that are currently living in [place] and 2 sisters. He has 3 children ages 7 year daughter, 4-year-old son, son. General Exam Limitations: no limitations General appearance: alert, in no apparent distress Head exam: Present: atraumatic, normocephalic, normal inspection Eye exam: Present: normal appearance, PERRL, EOMI. Absent: scleral icterus, conjunctival injection, periorbital swelling ENT exam: Present: mucous membranes moist, TM's normal bilaterally, normal external ear exam. Absent: normal oropharynx (Postnasal drainage) Neck exam: Present: normal inspection, full ROM. Absent: tenderness, meningismus, lymphadenopathy Respiratory exam: Present: normal lung sounds bilaterally. Absent: respiratory distress, wheezes, rales, rhonchi, stridor Cardiovascular Exam: Present: regular rate, normal rhythm, normal heart sounds. Absent: systolic murmur, diastolic murmur, rubs, gallop, clicks Course Vital Signs 01/06/19 21:48 Temperature 98.0 F Pulse Rate 62 Respiratory 18 Rate Blood Pressure 112/68 O2 Sat by Pulse 100 Oximetry Medical Decision Making - Medical Decision Making Patient has acute sinusitis with a posterior infections currently treated on antibiotics return parameters discussed. Disposition Clinical Impression: Sinusitis Disposition: HOME SELF-CARE Condition: Stable Instructions (If sedation given, give patient instructions): Upper Respiratory Infection (ED) Additional Instructions: Please return to the Emergency Department if symptoms worsen or any other concerns. Prescriptions: Amoxicillin/Potassium Clav [Augmentin 875-125 Tablet] 1 tab PO Q12HR #20 tab Is patient prescribed a controlled substance at d/c from ED?: No Referrals: None,Stated [Primary Care Provider] - 1-2 days Time of Disposition: 22:05
== END 2019-01-06 22:25 | disposition home or self-care (01) ==
LOC: EC 21:38
DX: J01.90 Acute sinusitis, unspecified (principal); F17.200 Nicotine dependence, unspecified, uncomplicated; Z88.6 Allergy status to analgesic agent
CPT/HCPCS: 99283

== ENCOUNTER 2022-05-29 16:57 | Emergency (ER) | payer OTHER ==
[2022-05-29 17:01] VITALS: BP 111/77; PULSE 81; RESP 16; TEMP 97.7
--- NOTE | 2022-05-29 17:14 | ED ---
ENT HPI - General Chief complaint: Dental/Oral Stated complaint: toothache Time Seen by Provider: 05/29/22 17:00 Source: patient, RN notes reviewed, old records reviewed Mode of arrival: ambulatory Limitations: no limitations - History of Present Illness Initial comments: Nontoxic-appearing 36-year-old male presents ambulatory with complaints of right lower dental pain for 3 weeks. He is trying to obtain a dentist but having trouble finding one that takes his insurance. Denies any fevers. No nausea vomiting or diarrhea. No difficulty swallowing. No throat pain. Patient states he thinks he just needs some antibiotics until he can get into a dentist. MD complaint: tooth pain -: week(s) (3) Context- Dental: history of dental caries, poor dental care - Related Data Previous Rx's Medication Instructions Recorded Amoxicillin/Potassium Clav 1 tab PO Q12HR #20 tab 01/06/19 [Augmentin 875-125 Tablet] Penicillin V Potassium [Pen Vee K] 500 mg PO QID 10 Days #40 tablet 05/29/22 Allergies Allergy/AdvReac Type Severity Reaction Status Date / Time acetaminophen [From Tylenol] AdvReac "does not Verified 05/29/22 17:01 take" Review of Systems ROS Statement: Those systems with pertinent positive or pertinent negative responses have been documented in the HPI. ROS Other: All systems not noted in ROS Statement are negative. Past Medical History Past Medical History: Liver Disease, Musculoskeletal Disorder Additional Past Medical History / Comment(s): hepatitis c. chronic back pain with ruptured disc, cutting in the past History of Any Multi-Drug Resistant Organisms: None Reported Past Surgical History: No Surgical Hx Reported Additional Past Surgical History / Comment(s): Colonoscopy/EGD Past Anesthesia/Blood Transfusion Reactions: No Reported Reaction Past Psychological History: ADD/ADHD Smoking Status: Current every day smoker Past Alcohol Use History: None Reported Past Drug Use History: None Reported - Past Family History Father Additional Family Medical History / Comment(s): Father is alive at age 62 with history of Crohn's. Mother Additional Family Medical History / Comment(s): Mother is alive at age 54 with history of fibromyalgia and rheumatoid arthritis. Patient has 2 brothers that are currently living in [place] and 2 sisters. He has 3 children ages 7 year daughter, 4-year-old son, son. General Exam Limitations: no limitations General appearance: alert, in no apparent distress Head exam: Present: atraumatic, normocephalic Eye exam: Present: normal appearance. Absent: scleral icterus, conjunctival injection, periorbital swelling ENT exam: Present: normal oropharynx, mucous membranes moist Expanded Mouth exam: Present: tongue normal, tongue elevation. Absent: drooling, trismus, muffled voice Teeth exam: Present: dental caries, dental tenderness # (18) Throat exam: normal inspection. negative: tonsillar erythema, tonsillar exudate, R peritonsillar mass, L peritonsillar mass Neck exam: Present: full ROM. Absent: meningismus, lymphadenopathy Respiratory exam: Absent: respiratory distress, accessory muscle use Cardiovascular Exam: Present: regular rate Neurological exam: Present: alert, oriented X3 Psychiatric exam: Present: normal affect, normal mood Skin exam: Present: warm, dry, normal color. Absent: rash, cyanosis, diaphoretic, petechiae, pallor Course Vital Signs 05/29/22 16:59 Temperature 97.7 F Pulse Rate 81 Respiratory 16 Rate Blood Pressure 111/77 O2 Sat by Pulse 97 Oximetry Medical Decision Making - Medical Decision Making Patient presents with tooth #18 pain, dental caries noted. No evidence of drainable abscess. No lymphadenopathy. Denies sore throat or fevers. No nausea vomiting or diarrhea. He'll be placed on antibiotics. Directed to follow-up with a dentist. He is agreeable to this plan of care. He is prescribed penicillin VK QID for 10 days. Patient offered pain medication and declined. Case discussed with Dr. Woo Was pt. sent in by a medical professional or institution (, PA, STRATEGIC ADVISOR, urgent care, hospital, or penitentiary...) When possible be specific @ -No Did you speak to anyone other than the patient for history (EMS, parent, family, police, friend...)? What history was obtained from this source @ -No Did you review nursing and triage notes (agree or disagree)? Why? @ -I reviewed and agree with nursing and triage notes Were old charts reviewed (outside hosp., previous admission, EMS record, old EKG, old radiological studies, urgent care reports/EKG's, penitentiary records)? Report findings @ -No old charts were reviewed Differential Diagnosis (chest pain, altered mental status, abdominal pain women, abdominal pain men, vaginal bleeding, weakness, fever, dyspnea, syncope, he adache, dizziness, GI bleed, back pain, seizure, CVA, palpatations, mental health, musculoskeletal)? @ -Dental abscess, dental trauma, ludwigs angina, cellulitis, retropharyngeal abscess this is not all inclusive list. EKG interpreted by me (3pts min.). @ -n/a X-rays interpreted by me (1pt min.). @ -None done CT interpreted by me (1pt min.). @ -None done U/S interpreted by me (1pt. min.). @ -None done What testing was considered but not performed or refused? (CT, X-rays, U/S, labs)? Why? @ -None What meds were considered but not given or refused? Why? @ -Patient was offered Tylenol Motrin or Toradol for pain and declined Did you discuss the management of the patient with other professionals (professionals i.e. , PA, STRATEGIC ADVISOR, lab, RT, psych nurse, social sciences chair, security system analyst, teacher, collections officer, case finisher)? Give summary @ -No Was smoking cessation discussed for >3mins.? @ -No Was critical care preformed (if so, how long)? @ -No Were there social determinants of health that impacted care today? How? (Homel essness, low income, unemployed, alcoholism, drug addiction, transportation, low edu. Level, literacy, decrease access to med. care, half-way, rehab)? @ -No Was there de-escalation of care discussed even if they declined (Discuss DNR or withdrawal of care, Hospice)? DNR status @ -No What co-morbidities impacted this encounter? (DM, HTN, Smoking, COPD, CAD, Cancer, CVA, ARF, Chemo, Hep., AIDS, mental health diagnosis, sleep apnea, morbid obesity)? @ -None Was patient admitted / discharged? Hospital course, mention meds given and route, prescriptions, significant lab abnormalities, going to OR and other pertinent info. @ -Discharged Undiagnosed new problem with uncertain prognosis? @ -No Drug Therapy requiring intensive monitoring for toxicity (Heparin, Nitro, Insulin, Cardizem)? @ -No Were any procedures done? @ -No Diagnosis/symptom? @ -Dental abscess, toothache Acute, or Chronic, or Acute on Chronic? @ -Acute Uncomplicated (without systemic symptoms) or Complicated (systemic symptoms)? @ -Uncomplicated Side effects of treatment? @ -No Exacerbation, Progression, or Severe Exacerbation? @ -No Poses a threat to life or bodily function? How? (Chest pain, USA, AR, pneumonia, PE, COPD, DKA, ARF, appy, cholecystitis, CVA, Diverticulitis, Homicidal, Suicidal, threat to staff... and all critical care pts) @ -No Disposition Clinical Impression: Dental caries, Dental abscess Disposition: HOME SELF-CARE Condition: Good Instructions (If sedation given, give patient instructions): Dental Abscess (ED), Toothache (ED) Additional Instructions: Take antibiotics as prescribed. Follow-up with the dentist this week. Return to the emergency room with any new or concerning signs and symptoms including difficulty swallowing, fevers or abscess formation. Prescriptions: Penicillin V Potassium [Pen Vee K] 500 mg PO QID 10 Days #40 tablet Is patient prescribed a controlled substance at d/c from ED?: No Referrals: None,Stated [Primary Care Provider] - 1-2 days Time of Disposition: 17:14
== END 2022-05-29 17:31 | disposition home or self-care (01) ==
LOC: EC 16:57
DX: K02.9 Dental caries, unspecified (principal); K04.7 Periapical abscess without sinus; F17.200 Nicotine dependence, unspecified, uncomplicated; Z88.6 Allergy status to analgesic agent
CPT/HCPCS: 99282

== ENCOUNTER 2023-06-01 08:58 | Emergency (ER) | payer OTHER ==
[2023-06-01 09:05] LABS: Glucose,Whole Blood 108 mg/dL (70-110)
[2023-06-01] MEDS: SODIUM CHLORIDE 0.9% 1,000 ML IV STA (09:10)
[2023-06-01 09:11] LABS: Basophils # (A) 0.1 k/uL (0-0.2); Basophils % (A) 1 %; Eosinophils # (A) 0.1 k/uL (0-0.7); Eosinophils % (A) 2 %; HCT 41.1 % (39.0-53.0); Lymphocytes # (A) 2.4 k/uL (1.0-4.8); Lymphocytes % (A) 29 %; MCH 28.1 pg (25.0-35.0); MCHC 31.7 g/dL (31.0-37.0); MCV 88.6 fL (80.0-100.0); Mean Platelet Volume 7.2; Monocytes # (A) 0.4 k/uL (0-1.0); Monocytes % (A) 4 %; Neutrophils # (A) 5.1 k/uL (1.3-7.7); Neutrophils % (A) 62 %; Platelet Count 166 k/uL (150-450); RBC 4.63 m/uL (4.30-5.90); RDW 12.8 % (11.5-15.5); WBC 8.1 k/uL (3.8-10.6)
[2023-06-01 09:19] LABS: INR 0.9 (<1.2); Partial Thromboplastin Time 22.7 sec (22.0-30.0); Prothrombin Time 10.1 sec (10.0-12.5)
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
[2023-06-01 10:28] LABS: ALT 22 U/L (4-49); AST 30 U/L (17-59); African American GFR (CKD) >90 (>60 ml/min/1.73 sqM); Albumin 4.3 g/dL (3.5-5.0); Alcohol <10 mg/dL; Alkaline Phosphatase 92 U/L (38-126); Anion Gap 7 mmol/L; Blood Urea Nitrogen 19 mg/dL (9-20); Calcium 9.6 mg/dL (8.4-10.2); Carbon Dioxide 28 mmol/L (22-30); Chloride 105 mmol/L (98-107); Glucose 106 mg/dL (74-99); Non-African American GFR(CKD) >90 (>60 ml/min/1.73 sqM); Potassium 4.1 mmol/L (3.5-5.1); Sodium 140 mmol/L (137-145); Total Bilirubin 0.7 mg/dL (0.2-1.3); Total Protein 7.6 g/dL (6.3-8.2)
[2023-06-01 10:44] VITALS: PULSE 56
--- NOTE | 2023-06-01 10:47 | CT ---
EXAMINATION TYPE: CT brain cspine wo con CT DLP: 1526.5 mGycm, Automated exposure control for dose reduction was used. DATE OF EXAM: 06/01/2023 9:54 AM COMPARISON: None. CLINICAL INDICATION:Male, 37 years old with history of trauma; TECHNIQUE: Brain: Multiple axial CT images of the brain were obtained without IV contrast. Cspine: Axial CT images from the skull base to the inferior aspect of T2 we obtained without intraven ous contrast. Coronal and sagittal reformatted images were also reviewed. FINDINGS: Brain: Extra-axial spaces: No abnormal extra-axial fluid collections. Ventricular system: Within normal limits. Cerebral parenchyma: No increased attenuation to suggest acute intraparenchymal hemorrhage. The gra y-white matter interface appears maintained. No significant atrophy. White matter unremarkable by C T. Cerebellum: No acute abnormality. Mass effect: No evidence of mass effect or midline shift. Intracranial vasculature: Unremarkable Soft tissues: Normal. Visualized orbits: Orbital contents appear grossly intact. Calvarium/osseous structures: No evidence of calvarial fracture. Mild deformity of the nasal bones fa vored to be chronic. Paranasal sinuses and mastoid air cells: Possible operative opening in the medial right maxillary sinus wall. Mild nasal septal deviation to t he left with small osseous spur. MRI is more sensitive for detecting acute processes such as infarct, and may be considered if clinica lly warranted. Cervical spine: Fracture: None seen. Osseous structures, spinal canal/neural foramina: Craniocervical junction is intact. There is disc sp sandra narrowing with slight endplate sclerosis and posterior disc osteophyte complex C5-C6. Mild revers al of the normal cervical lordosis from C2 through C6. No traumatic malalignment is seen. No significant spinal canal or neural foraminal stenosis is suggested, except for there is mild to mo derate canal and foraminal stenosis at the C5-C6 level. Neck soft tissues: No acute finding.. Other: Lung apices show no acute infiltrate or pneumothorax. IMPRESSION: CT head: 1. No acute intracranial CT abnormality. CT cervical spine: 1. No evidence of acute cervical spine fracture or traumatic malalignment. 2. Mild degenerative changes, mostly at C5-C6.
--- NOTE | 2023-06-01 10:54 | CT ---
EXAMINATION TYPE: CT thor lumbar spine wo con CT DLP: 1512.6 mGycm, Automated exposure control for dose reduction was used. DATE OF EXAM: 06/01/2023 9:55 AM CLINICAL INDICATION:Male, 37 years old with history of trauma; COMPARISON: TECHNIQUE: Axial images of the thoracic and lumbar spine were obtained without contrast. Coronal and sagittal reformats were performed. CT Contrast: Contrast used: mL of , none. Oral contrast used: none. FINDINGS: Thoracic: Normal vertebral body heights, alignments, and interspacing. No evidence of acute fracture or listhes is. Mild multilevel chronic changes with small Schmorl's nodes seen at multiple levels. No pathologic intracanalicular process is suggested by CT. Lumbar: 5 lumbar type vertebral bodies with partially sacralized appearance of L5. Vertebral body heights and alignment are preserved. No evidence of acute fracture. Digitized upper sacrum and iliac bones are i ntact. Mild posterior disc bulging in the upper to mid lumbar spine without significant canal or foraminal n arrowing suggested. Loss of disc height with mild vacuum disc phenomenon L4-L5, posterior disc bulge and small focus of gas posterior to the upper L5 vertebral body, right reflect a small disc extrusion which would be better assessed by MRI. Mild to moderate canal and neural foraminal stenoses suggeste d. No significant finding L5-S1. Please refer to separate CT body report for further description of findings. IMPRESSION: 1. No acute fracture or traumatic malalignment of the thoracic or lumbar spine. 2. Generally mild degenerative changes, greatest at L4-L5 as described.
--- NOTE | 2023-06-01 11:03 | CT ---
EXAMINATION TYPE: CT ChestAbdPelvis w con CT DLP: 1601.4 mGycm, Automated exposure control for dose reduction was used. DATE OF EXAM: 06/01/2023 9:55 AM COMPARISON: None. CLINICAL INDICATION:Male, 37 years old with history of trauma; [facility], TECHNIQUE: Multiple axial images of the chest, abdomen, and pelvis were obtained. Two-dimensional cor onal and sagittal reconstructions were obtained. Contrast used: mL of , Oral contrast used: FINDINGS: CHEST: LUNGS/ PLEURA: The lung parenchyma appears unremarkable. AIRWAY: Central airways are patent. LOWER NECK: No significant findings. The left thyroid lobe appears slightly smaller than the right. MEDIASTINUM: No gross evidence of adenopathy. No hematoma or free gas. HEART: Normal heart size. No pericardial effusion.. VASCULATURE: No significant atherosclerotic disease. Ascending aorta is 3 CM, descending is 0.3 CM. No dissection flap is seen. Pulmonary trunk measures 2.4 CM. Pulmonary trunk is normal in size. Gross ly preserved enhancement of the pulmonary arteries, in the limits of non-CTA exam. SOFT TISSUES/LYMPH NODES: Unremarkable soft tissues. No axillary adenopathy. MUSCULOSKELETAL: No acute osseous abnormalities. Also refer to separate CT spine report. OTHER: No other significant finding. ABDOMEN PELVIS: ABDOMEN LIVER: Unremarkable GALLBLADDER AND BILE DUCTS: Unremarkable. PANCREAS: Unremarkable. SPLEEN: Unremarkable. ADRENAL GLANDS: Unremarkable.. KIDNEYS AND URETERS: No evidence of hydronephrosis, renal or ureteral calculus. Kidneys enhance symme trically. No evidence of acute traumatic injury. PELVIS BLADDER: Unremarkable REPRODUCTIVE: Unremarkable. ABDOMEN & PELVIS STOMACH AND BOWEL: Possible tiny sliding hernia. Stomach and duodenum are unremarkable. No appreciabl e dilated or thickened small bowel. Appendix is not identified with certainty, however there is no in flammatory process seen in the RLQ. Moderate stool throughout the colon without acute abdomen on the demonstrated. PERITONEUM/RETROPERITONEUM: No evidence of pneumoperitoneum or free fluid. VASCULATURE: No evidence of aortic aneurysm. Normal caliber IVC. The hepatic veins and splenic vein a re enhancing. MUSCULOSKELETAL: No acute osseous abnormalities. Also refer to separate spine CT. LYMPH NODES: No evidence of lymphadenopathy. SOFT TISSUES/ABDOMINAL WALL: Unremarkable OTHER: No other significant finding. IMPRESSION: No evidence of acute traumatic injury within the chest, abdomen or pelvis.
[2023-06-01 11:20] VITALS: RESP 18; TEMP 98.8
[2023-06-01 11:56] VITALS: BP 124/76
== END 2023-06-01 11:47 | disposition home or self-care (01) ==
LOC: EC 08:58
DX: Z04.1 Encounter for examination and observation following transport accident (principal); F17.200 Nicotine dependence, unspecified, uncomplicated
CPT/HCPCS: 99285 ×2; 96360 ×2; 36415; 93005; 86900; 86901; 80053; 85025; 85610; 85730; 86850; 72170; 71045; 72128; 72125; 72131; 70450; 71260; 74177; L0120; G0390; G0480; Q9967; 80320; 99291

== ENCOUNTER 2024-01-31 09:26 | Emergency (ER) | payer MEDICARE, OTHER ==
[2024-01-31 09:29] VITALS: BP 114/75; PULSE 53; RESP 18; TEMP 98.6
--- NOTE | 2024-01-31 10:14 | ED ---
General Adult HPI - General Chief complaint: Dental/Oral Stated complaint: DENTAL PAIN Time Seen by Provider: 01/31/24 09:35 Source: patient, RN notes reviewed, old records reviewed Mode of arrival: ambulatory Limitations: no limitations - History of Present Illness Initial comments: This is a 38-year-old male who presents to the emergency department complaining some pain around tooth that has been eroded away secondary caries and it is inflamed but there is no obvious abscess. Patient states the pain has been getting worse lately. Patient does not want any narcotics because he is already on methadone for narcotic abuse. Patient denies any fever chills. Patient has any other problems. - Related Data Previous Rx's Medication Instructions Recorded Amoxicillin 500 mg PO Q8H #30 capsule 01/31/24 Allergies Allergy/AdvReac Type Severity Reaction Status Date / Time acetaminophen [From Tylenol] AdvReac "does not Verified 01/31/24 09:29 take" Review of Systems ROS Statement: Those systems with pertinent positive or pertinent negative responses have been documented in the HPI. ROS Other: All systems not noted in ROS Statement are negative. Past Medical History Past Medical History: Liver Disease, Musculoskeletal Disorder Additional Past Medical History / Comment(s): hepatitis c. chronic back pain with ruptured disc, cutting in the past History of Any Multi-Drug Resistant Organisms: None Reported Past Surgical History: No Surgical Hx Reported Additional Past Surgical History / Comment(s): Colonoscopy/EGD Past Anesthesia/Blood Transfusion Reactions: No Reported Reaction Past Psychological History: ADD/ADHD Smoking Status: Current every day smoker Past Alcohol Use History: None Reported Past Drug Use History: None Reported - Past Family History Father Additional Family Medical History / Comment(s): Father is alive at age 62 with history of Crohn's. Mother Additional Family Medical History / Comment(s): Mother is alive at age 54 with history of fibromyalgia and rheumatoid arthritis. Patient has 2 brothers that are currently living in [place] and 2 sisters. He has 3 children ages 7 year daughter, 4-year-old son, son. General Exam - General Exam Comments Initial Comments: GENERAL Patient is well-developed and well-nourished. Patient is in mild distress. EYES Patient's pupils are equal and round. Extraocular motion is intact MOUTH Patient has some severe dental caries and around the right lower premolar is a tooth it has been decayed down to the gumline and it is tender and a little erythematous no abscess noted SKIN Unremarkable NEURO The patient is alert and oriented A&Ox3 PYSCH Patient has normal interpersonal interactions. MUSCULOSKELETAL All 4 extremities full range of motion Limitations: no limitations Course Vital Signs 01/31/24 09:27 Temperature 98.6 F Pulse Rate 53 L Respiratory 18 Rate Blood Pressure 114/75 O2 Sat by Pulse 98 Oximetry Medical Decision Making - Medical Decision Making Was pt. sent in by a medical professional or institution (KATHY Johnson, G[employer] M[employer]SEMBLER, urgent care, hospital, or fdc...) When possible be specific @ -No Did you speak to anyone other than the patient for history (EMS, parent, family, police, friend...)? What history was obtained from this source @ -No Did you review nursing and triage notes (agree or disagree)? Why? @ -I reviewed and agree with nursing and triage notes Were old charts reviewed (outside hosp., previous admission, EMS record, old EKG, old radiological studies, urgent care reports/EKG's, fdc records)? Report findings @ -No old charts were reviewed Differential Diagnosis? @ -Dental caries, dental abscess, dental infection, EKG interpreted by me (3pts min.). @ -As above X-rays interpreted by me (1pt min.). @ -None done CT interpreted by me (1pt min.). @ -None done U/S interpreted by me (1pt. min.). @ -None done What testing was considered but not performed or refused? (CT, X-rays, U/S, labs)? Why? @ -None What meds were considered but not given or refused? Why? @ -None Did you discuss the management of the patient with other professionals (professionals i.e. KATHY Johnson, [employer] M[employer]SEMBLER, lab, RT, psych nurse, renal social worker, heat regulator, teacher, amphibious operations officer, leather case finisher)? Give summary @ -No Was smoking cessation discussed for >3mins.? @ -No Was critical care preformed (if so, how long)? @ -No Were there social determinants of health that impacted care today? How? (Homelessness, low income, unemployed, alcoholism, drug addiction, transportation, low edu. Level, literacy, decrease access to med. care, senior care, rehab)? @ -No Was there de-escalation of care discussed even if they declined (Discuss DNR or withdrawal of care, Hospice)? DNR status @ -No What co-morbidities impacted this encounter? (DM, HTN, Smoking, COPD, CAD, Cancer, CVA, ARF, Chemo, Hep., AIDS, mental health diagnosis, sleep apnea, morbid obesity)? @ -None Was patient admitted / discharged? Hospital course, mention meds given and route, prescriptions, significant lab abnormalities, going to OR and other pertinent info. @ -Hospital course Undiagnosed new problem with uncertain prognosis? @ -No Drug Therapy requiring intensive monitoring for toxicity (Heparin, Nitro, Insulin, Cardizem)? @ -No Were any procedures done? @ -No Diagnosis/symptom? @ -Dental infection Acute, or Chronic, or Acute on Chronic? @ -Acute Uncomplicated (without systemic symptoms) or Complicated (systemic symptoms)? @ -Uncomplicated Side effects of treatment? @ -No Exacerbation, Progression, or Severe Exacerbation? @ -No Poses a threat to life or bodily function? How? (Chest pain, [place], [place], pneumonia, PE, COPD, DKA, ARF, appy, cholecystitis, CVA, Diverticulitis, Homicidal, Suicidal, threat to staff... and all critical care pts) @ -No Disposition Clinical Impression: Dental caries, Dental infection Disposition: HOME SELF-CARE Condition: Good Instructions (If sedation given, give patient instructions): Toothache (ED) Prescriptions: Amoxicillin 500 mg PO Q8H #30 capsule Is patient prescribed a controlled substance at d/c from ED?: No Referrals: [facility] [NON-STAFF] - 1-2 days [facility] [NON-STAFF] - 1-2 days None,Stated [Primary Care Provider] - 1-2 days Forms: Area PCPs Time of Disposition: 10:13
== END 2024-01-31 10:46 | disposition home or self-care (01) ==
LOC: EC 09:26
DX: K02.9 Dental caries, unspecified (principal); K04.7 Periapical abscess without sinus; F17.200 Nicotine dependence, unspecified, uncomplicated; Z88.6 Allergy status to analgesic agent
CPT/HCPCS: 99282

== ENCOUNTER 2024-02-13 01:03 | Emergency (ER) | payer MEDICARE ==
[2024-02-13 01:09] VITALS: BP 135/76; PULSE 52; RESP 16; TEMP 97.9
--- NOTE | 2024-02-13 01:25 | ED ---
ENT HPI - General Chief complaint: Dental/Oral Stated complaint: Dental pain Time Seen by Provider: 02/13/24 01:09 Source: patient, RN notes reviewed Mode of arrival: ambulatory Limitations: no limitations - History of Present Illness Initial comments: This is a 38-year-old male who presents to the emergency department for dental pain. Patient was evaluated here a couple of weeks ago for right-sided dental pain and started on amoxicillin. Patient has several broken teeth leading to recurrent dental infections. States that amoxicillin is the only antibiotic that does not seem to work for him, however everything else is effective. He is already on methadone. States that he has been taking ibuprofen which does seem to help with his pain. He is scheduled to see a dentist in the next couple of days, but states that he could not wait until then due to the pain. Denies any fevers or chills. He has noticed minor swelling. MD complaint: tooth pain - Related Data Previous Rx's Medication Instructions Recorded Amoxicillin 500 mg PO Q8H #30 capsule 01/31/24 Ketorolac [Toradol] 10 mg PO Q6HR PRN #15 tab 02/13/24 clindamycin HCL 300 mg PO QID 10 Days #40 capsule 02/13/24 Allergies Allergy/AdvReac Type Severity Reaction Status Date / Time acetaminophen [From Tylenol] AdvReac "does not Verified 02/13/24 01:05 take" Review of Systems ROS Statement: Those systems with pertinent positive or pertinent negative responses have been documented in the HPI. ROS Other: All systems not noted in ROS Statement are negative. Past Medical History Past Medical History: Liver Disease, Musculoskeletal Disorder Additional Past Medical History / Comment(s): hepatitis c. chronic back pain with ruptured disc, cutting in the past History of Any Multi-Drug Resistant Organisms: None Reported Past Surgical History: No Surgical Hx Reported Additional Past Surgical History / Comment(s): Colonoscopy/EGD Past Anesthesia/Blood Transfusion Reactions: No Reported Reaction Past Psychological History: ADD/ADHD Smoking Status: Current every day smoker Past Alcohol Use History: None Reported Past Drug Use History: None Reported - Past Family History Father Additional Family Medical History / Comment(s): Father is alive at age 62 with history of Crohn's. Mother Additional Family Medical History / Comment(s): Mother is alive at age 54 with history of fibromyalgia and rheumatoid arthritis. Patient has 2 brothers that a re currently living in [place] and 2 sisters. He has 3 children ages 7 year daughter, 4-year-old son, son. General Exam Limitations: no limitations General appearance: alert, in no apparent distress Head exam: Present: atraumatic, normocephalic, normal inspection ENT exam: Present: other (Multiple dental caries and chipped teeth. Minor fullness/swelling along the right lower jaw. No palpable abscess. No elevation of the tongue or swelling to the floor of the mouth) Respiratory exam: Present: normal lung sounds bilaterally. Absent: respiratory distress, wheezes, rales, rhonchi, stridor Cardiovascular Exam: Present: regular rate, normal rhythm, normal heart sounds. Absent: systolic murmur, diastolic murmur, rubs, gallop, clicks Neurological exam: Present: alert, oriented X3, CN II-XII intact Psychiatric exam: Present: normal affect, normal mood Skin exam: Present: warm, dry, intact, normal color. Absent: rash Course Vital Signs 02/13/24 01:05 Temperature 97.9 F Pulse Rate 52 L Respiratory 16 Rate Blood Pressure 135/76 O2 Sat by Pulse 99 Oximetry Medical Decision Making - Medical Decision Making This is a 38 year old male who presents to the emergency department for dental pain. Was pt. sent in by a medical professional or institution? @ -No Did you speak to anyone other than the patient for history? @ -No Did you review nursing and triage notes? @ -Yes, and I agree, it is accurate with regards to the patient's symptoms. Were old charts reviewed? @ -No Differential Diagnosis? @ -Differential Dental Pain Dental abscess, chipped tooth, dental carries, rosalino's angina, trigeminal neuralgia, this is not meant to be an all-inclusive list. EKG interpreted by me (3pts min.)? @ -Not obtained X-rays interpreted by me (1pt min.)? @ -Not obtained CT interpreted by me (1pt min.)? @ -Not obtained U/S interpreted by me (1pt. min.)? @ -Not obtained What testing was considered but not performed? (CT, X-rays, U/S, labs)? Why? @ -None What meds were considered but not given? Why? @ -None Did you discuss the management of the patient with other professionals? @ -No Did you reconcile home meds? @ -No Was smoking cessation discussed for >3mins.? @ -I discussed smoking cessation for greater than 3 minutes. The risk of smoking were discussed with the patient including but not limited to risks of cancer, stroke, coronary artery disease and COPD. Also discussed with patient were multiple methods of quitting smoking. Lastly we discussed the financial cost of smoking. Was critical care preformed (if so, how long)? @ -No Were there social determinants of health that impacted care today? How? (Homelessness, low income, unemployed, alcoholism, drug addiction, transportation, low edu. Level, literacy, decrease access to med. care, longterm, rehab)? @ -No Was there de-escalation of care discussed even if they declined? (Discuss DNR or withdrawal of care, Hospice)? @ -No What co-morbidities impacted this encounter? (DM, HTN, Smoking, COPD, CAD, Cancer, CVA, Hep., AIDS, mental health diagnosis, sleep apnea, morbid obesity)? @ -Smoking Was patient admitted / discharged? @ -Discharged. On exam patient had multiple dental caries and chipped teeth. He had some mild swelling and fullness without any distinct palpable abscess. He had no elevation of the tongue or swelling to the floor of the mouth to suggest Rosalino's angina. Advised that we can put him on clindamycin, which patient states has been effective in the past. Initial dose administered in the emergency department. He was sent home with Orajel and Toradol was prescribed as well to see if it is more effective than the ibuprofen. He will otherwise follow-up with his dentist as scheduled. Patient discharged home in stable condition. Case discussed with ED attending Dr. Puri. Return precautions reviewed in depth, the patient is instructed to return to the emergency department with any new, worsening, or concerning symptoms. Patient verbalized understanding. Undiagnosed new problem with uncertain prognosis? @ -None Drug Therapy requiring intensive monitoring for toxicity (Heparin, Nitro, Insulin, Cardizem)? @ -None Were any procedures done? @ -None Diagnosis/symptom? @ -Dental infection Acute, or Chronic, or Acute on Chronic? @ -Acute Uncomplicated (without systemic symptoms) or Complicated (systemic symptoms)? @ -Uncomplicated Side effects of treatment? @ -None Exacerbation, Progression, or Severe Exacerbation] @ -Not applicable Poses a threat to life or bodily function? @ -No Disposition Clinical Impression: Dental infection, Nicotine dependence Disposition: HOME SELF-CARE Instructions (If sedation given, give patient instructions): Toothache (ED) Additional Instructions: Return to the emergency department with any new, worsening, or concerning symptoms. Take the antibiotic as prescribed for 10 days. Take the Toradol with Tylenol as needed for pain relief. If you choose to take the Toradol, do not take any other anti-inflammatories such as ibuprofen, take one or the other. Follow up with your dentist as scheduled. Prescriptions: clindamycin HCL 300 mg PO QID 10 Days #40 capsule Ketorolac [Toradol] 10 mg PO Q6HR PRN #15 tab PRN Reason: Pain Is patient prescribed a controlled substance at d/c from ED?: No Referrals: None,Stated [Primary Care Provider] - 1-2 days Time of Disposition: 01:25
[2024-02-13] MEDS: ACETAMINOPHEN TAB 500 MG TAB PO STA (01:30)
[2024-02-13] MEDS: CLINDAMYCIN 150 MG CAP PO STA (01:31)
[2024-02-13] MEDS: KETOROLAC 15 MG/ML 1 ML VIAL IM STA (01:32)
[2024-02-13] MEDS: BENZOCAINE 20 % GEL 11.9 GM TUBE MM ONE (02:02)
== END 2024-02-13 02:03 | disposition home or self-care (01) ==
LOC: EC 01:03
DX: K04.7 Periapical abscess without sinus (principal); F17.200 Nicotine dependence, unspecified, uncomplicated; Z88.6 Allergy status to analgesic agent
CPT/HCPCS: 96372; 99283; 99406

== ENCOUNTER 2024-03-13 13:23 | Emergency (ER) | payer MEDICARE ==
[2024-03-13 14:05] VITALS: RESP 16
--- NOTE | 2024-03-13 14:10 | ED ---
ENT HPI - General Source: patient, RN notes reviewed Mode of arrival: ambulatory Limitations: no limitations <Katie Barillas - Last Filed: 03/13/24 14:09> <Nishant Martins - Last Filed: 03/13/24 15:41> - General Chief complaint: Dental/Oral Stated complaint: Dental pain Time Seen by Provider: 03/13/24 14:00 - History of Present Illness Initial comments: Quick Note: This is a 38-year-old male who presents to the emergency department for right-sided dental pain. This has been an ongoing issue for the last month. He was put on clindamycin last month and states that it was effective, however the pain came back when he finished it a couple of weeks ago. He does have an appointment with a dentist later this month. Additionally, over the last couple of days he has had coughing and congestion. The cough is productive with green sputum. (Katie Barillas) History of various dictation was produced using [employer] dictation software. please excuse any grammatical, word or spelling errors. Chief Complaint: 38-year-old male with acute on chronic dental pain History of Present Illness: Patient is a 38-year-old male presents to the emergency department Dental pain. Patient reports that he has had pain to his teeth for about a month. Patient is history of poor dentition. States he was was to have her care at the walk-in dental clinic he states he forgot his wallet and was unable to see the dentist. Patient reports he is history of liver disease secondary to hepatitis C and previous treatment history. He has not had any alcohol in several years. Denies any fever, chills or night sweats. States that most of his pain is to his right lower mandible or teeth The ROS documented in this emergency department record has been reviewed and confirmed by me. Those systems with pertinent positive or negative responses have been documented in the HPI. All other systems are other negative and/or noncontributory. (Nishant Martins) - Related Data Previous Rx's Medication Instructions Recorded Amoxicillin 500 mg PO Q8H #30 capsule 01/31/24 Ketorolac [Toradol] 10 mg PO Q6HR PRN #15 tab 02/13/24 clindamycin HCL 300 mg PO QID 10 Days #40 capsule 02/13/24 Clindamycin [Cleocin] 450 mg PO Q8H 14 Days #126 cap 03/13/24 HYDROcodone/APAP 5-325MG [Reading 1 tab PO Q6HR PRN 3 Days #12 tab 03/13/24 5-325] Allergies Allergy/AdvReac Type Severity Reaction Status Date / Time acetaminophen [From Tylenol] AdvReac "does not Verified 03/13/24 14:03 take" Review of Systems ROS Other: All systems not noted in ROS Statement are negative. <Katie Barillas - Last Filed: 03/13/24 14:09> ROS Other: All systems not noted in ROS Statement are negative. <Nishant Martins - Last Filed: 03/13/24 15:41> ROS Statement: Those systems with pertinent positive or pertinent negative responses have been documented in the HPI. Past Medical History Past Medical History: Liver Disease, Musculoskeletal Disorder Additional Past Medical History / Comment(s): hepatitis c. chronic back pain with ruptured disc, cutting in the past History of Any Multi-Drug Resistant Organisms: None Reported Past Surgical History: No Surgical Hx Reported Additional Past Surgical History / Comment(s): Colonoscopy/EGD Past Anesthesia/Blood Transfusion Reactions: No Reported Reaction Past Psychological History: ADD/ADHD Smoking Status: Current every day smoker Past Alcohol Use History: None Reported Past Drug Use History: None Reported - Past Family History Father Additional Family Medical History / Comment(s): Father is alive at age 62 with history of Crohn's. Mother Additional Family Medical History / Comment(s): Mother is alive at age 54 with history of fibromyalgia and rheumatoid arthritis. Patient has 2 brothers that are currently living in [place] and 2 sisters. He has 3 children ages 7 year daughter, 4-year-old son, son. <Katie Barillas - Last Filed: 03/13/24 14:09> General Exam Limitations: no limitations <Katie Barillas - Last Filed: 03/13/24 14:09> <Nishant Martins - Last Filed: 03/13/24 15:41> - General Exam Comments Initial Comments: Visual Physical Exam Vital signs reviewed General: Well-appearing, nontoxic, no acute distress. Head: Normocephalic, atraumatic Eyes: PERRLA, EOMI ENT: Airway patent Chest: Nonlabored breathing Skin: No visual rash, normal skin tone Neuro: Alert and oriented 3 Musculoskeletal: No gross abnormalities (Katie Barillas) Oral exam: Poor dentition, palpatory tenderness to the mandibular right molars. No gingival abscess General: Well-appearing, nontoxic, no acute distress. Head: Normocephalic, atraumatic Eyes: PERRLA, EOMI ENT: Airway patent Chest: Nonlabored breathing Skin: No visual rash, normal skin tone Neuro: Alert and oriented 3 Musculoskeletal: No gross abnormalities (Nishant Martins) Course Vital Signs 03/13/24 14:03 Temperature 98.6 F Pulse Rate 56 L Respiratory 16 Rate Blood Pressure 126/67 O2 Sat by Pulse 98 Oximetry Medical Decision Making <Katie Barillas - Last Filed: 03/13/24 14:09> <Nishant Martins - Last Filed: 03/13/24 15:41> - Medical Decision Making I performed the QuickNote portion of this chart. Signed Katie Barillas PA-C. (Katie Barillas) Was pt. sent in by a medical professional or institution (KATHY Johnson, NET SOFTWARE DEVELOPER, urgent care, hospital, or longterm...) When possible be specific @ -No Did you speak to anyone other than the patient for history (EMS, parent, family, police, friend...)? What history was obtained from this source @ -No Did you review nursing and triage notes (agree or disagree)? Why? @ -I reviewed and agree with nursing and triage notes Were old charts reviewed (outside hosp., previous admission, EMS record, old EKG, old radiological studies, urgent care reports/EKG's, longterm records)? Report findings @ -No old charts were reviewed Differential Diagnosis (chest pain, altered mental status, abdominal pain women, abdominal pain men, vaginal bleeding, musculoskeletal, weakness, fever, dyspnea, syncope, headache, dizziness, GI bleed, back pain, seizure, CVA, palpatations, mental health)? @ -Gingival abscess, Rosalino's angina, dental infection EKG interpreted by me (3pts min.). @ -None done X-rays interpreted by me (1pt min.). @ -None done CT interpreted by me (1pt min.). @ -None done U/S interpreted by me (1pt. min.). @ -None done What testing was considered but not performed or refused? (CT, X-rays, U/S, labs)? Why? @ -None What meds were considered but not given or refused? Why? @ -None Was smoking cessation discussed for >3mins.? @ -No Were there social determinants of health that impacted care today? How? (Homelessness, low income, unemployed, alcoholism, drug addiction, transportation, low edu. Level, literacy, decrease access to med. care, retirement, rehab)? @ -No Was there de-escalation of care discussed even if they declined (Discuss DNR or withdrawal of care, Hospice)? DNR status @ -No What co-morbidities impacted this encounter? (DM, HTN, Smoking, COPD, CAD, Cancer, CVA, ARF, Chemo, Hep., AIDS, mental health diagnosis, sleep apnea, morbid obesity)? @ -Poor dentition Was patient admitted / discharged? Hospital course, mention meds given and route, prescriptions, significant lab abnormalities, going to OR and other pertinent info. @ -38-year-old male with acute on chronic dental pain. Patient has history of poor dentition. Vital signs upon arrival are within acceptable limits. Oral examination shows no gingival abscess. Likely patient has dental root abscess. States that he is scheduled to have several teeth removed. Patient given prescription for antibiotics and analgesics. Discharged told to go to the dentist. Did you discuss the management of the patient with other professionals (professionals i.e. , PA, NET SOFTWARE DEVELOPER, lab, RT, psych nurse, social media community manager, software asset management analyst, teacher, retail loan officer, shoe caser)? Give summary @ -No Was critical care preformed (if so, how long)? @ -No Undiagnosed new problem with uncertain prognosis? @ -No Drug Therapy requiring intensive monitoring for toxicity (Heparin, Nitro, Insulin, Cardizem)? @ -No Were any procedures done? @ -No Diagnosis/symptom? Acute, or Chronic, or Acute on Chronic? Uncomplicated (without systemic symptoms) or Complicated (systemic symptoms)? @ -Dental pain Side effects of treatment? @ -No Exacerbation, Progression, or Severe Exacerbation? @ -No Poses a threat to life or bodily function? How? (Chest pain, USA, CT, pneumonia, PE, COPD, DKA, ARF, appy, cholecystitis, CVA, Diverticulitis, Homicidal, Suicidal, threat to staff... and all critical care pts) @ -yes (Nishant Martins) Disposition <Katie Barillas - Last Filed: 03/13/24 14:09> Is patient prescribed a controlled substance at d/c from ED?: Yes If prescribed controlled substance>3 days was MAPS reviewed?: Prescribed <3 Days Time of Disposition: 15:41 <Nishant Martins - Last Filed: 03/13/24 15:41> Clinical Impression: Pain, dental Disposition: HOME SELF-CARE Condition: Good Instructions (If sedation given, give patient instructions): Toothache (ED) Additional Instructions: follow up with Dentist Prescriptions: Clindamycin [Cleocin] 450 mg PO Q8H 14 Days #126 cap HYDROcodone/APAP 5-325MG [Reading 5-325] 1 tab PO Q6HR PRN 3 Days #12 tab PRN Reason: Severe Pain Referrals: None,Stated [Primary Care Provider] - 1-2 days
--- NOTE | 2024-03-13 15:06 | XR ---
EXAMINATION TYPE: XR chest 2V DATE OF EXAM: 03/13/2024 2:15 PM COMPARISON: 06/01/2023 CLINICAL INDICATION: Male, 38 years old with history of Cough, , TECHNIQUE: PA and lateral views FINDINGS: The cardiomediastinal silhouette, aorta, and pulmonary vasculature are within normal limits. Lungs an d pleural spaces are clear. IMPRESSION: No acute cardiopulmonary process. [facility], , 03/13/2024 3:04 PM
[2024-03-13] MEDS: HYDROmorphone 1 MG/ML 1 ML SYRINGE IM STA (15:38)
[2024-03-13 15:50] VITALS: BP 132/72; PULSE 48; TEMP 98.5
== END 2024-03-13 15:50 | disposition home or self-care (01) ==
LOC: EC 13:23
DX: K08.89 Other specified disorders of teeth and supporting structures (principal); F17.200 Nicotine dependence, unspecified, uncomplicated; Z88.6 Allergy status to analgesic agent
CPT/HCPCS: 71046; 99283; 96372; J1171